=== PATIENT | female | born 1970 | race Caucasian/White ===

== ENCOUNTER → 2016-12-02 | Outpatient (CLI) | payer BC ==
[~2016-12-02] MED LIST: ANEXSIA 7.5/3251 TA1 PO; AUGMENTIN875 M1 PO; NO MEDICATIONS; OMEPRAZOLE20 M2 PO; SENOKOT S1 TA1 PO; TYLENOL #3 PO
--- NOTE | ~2016-12-02 | MY11 ---
[facility] A Service of [facility] RADIOLOGY TEXT RESULTS PATIENT: LALA ZENG LOCATION: [facility] : 66 UNIT #: [id number] AGE: [address]: Sunshine Gr MD SEX: F ORDER DR: [id number] [address] [id number] O MR#: [id number] Acc #: [id number] NAME: LALA ZENG : 1970 SEX: F STUDY DATE/TIME: 12/02/2016 9:26 UNIT: [facility] ROOM: STUDY DESCRIPTION: MY Mammogram Screening Dig Steve Attending Physician: Sunshine Gr M.D. Referring Physician: Sunshine Gr M.D. Ordering Physician: Sunshine Gr M.D. Primary Care Physician: Sunshine Gr M.D. MEDICAL IMAGING REPORT This report is preliminary unless electronic signature is present. EXAM Digital screening mammogram 12/02/2016 HISTORY 46-year-old woman no risk elevation. New baseline mammogram. COMPARISON None. Previous mammogram 20+ years ago. FINDINGS Digital imaging of each breast was completed utilizing screening protocol. Review includes FDA-approved CAD device. Breast parenchyma is predominantly fatty replaced with scattered small parenchymal opacities in each breast. Mild duct prominence is noted bilaterally. I see no suspicious mass characteristics and no suspicious microcalcifications. There is no focal architectural distortion. IMPRESSION Negative new baseline mammogram. Annual screening recommended. Patients over the age of 40 are entered into a reminder system with target due date for the next mammogram. A result letter will also be sent to the patient. BIRADS: 1 Negative Dictated by... Garcia Colin M.D. THIS IS AN ELECTRONICALLY VERIFIED REPORT Garcia Colin M.D. at 12/02/2016 11:33 AM [facility] A Service of [facility] RADIOLOGY TEXT RESULTS PATIENT: LALA ZENG LOCATION: [facility] : 66 UNIT #: [id number] AGE: [address]: Sunshine Gr MD SEX: F ORDER DR: Rufino TD: 12/02/2016 10:36 JOB #: [id number] MEDICAL IMAGING REPORT Page 1 of 1
== END | disposition home or self-care (01) ==
LOC: SMAM 08:45
DX: Z12.31 Encounter for screening mammogram for malignant neoplasm of breast (principal)
CPT/HCPCS: G0202